=== PATIENT | female | born 1960 | race African-American/Black ===

== ENCOUNTER 2024-07-05 16:18 | Emergency (ER) | payer BC ==
[2024-07-05 16:26] VITALS: BMI 23.6
[2024-07-05] MEDS: SODIUM CHLORIDE 0.9% 500 ML INFUS.BAG IV ONE (17:21)
[2024-07-05] MEDS ORDERED: MECLIZINE HCL 25 MG TABLET (FP) ONE (17:22)
[2024-07-05 17:27] LABS: ABSOLUTE IMMATURE GRANULOCYTES 0.02 x10^3/uL (0.0-0.031); BASOPHILS # 0.03 x10^3/uL (0.01-0.08); EOSINOPHILS # 0.48 x10^3/uL (0.04-0.36); HEMATOCRIT 38.4 % (34.1-44.9); HEMOGLOBIN 12.9 g/dL (11.2-15.7); MCHC 33.6 g/dl (32.2-35.5); MEAN CELL VOLUME 83.8 fl (79.4-94.8); MEAN PLT VOLUME 9.9 fl (9.4-12.3); MONOCYTE # 0.38 x10^3/uL (0.24-0.86); MONOCYTE % 9.5 % (4.7-12.5); PLATELET COUNT # 273 x10^3/uL (182-369); RDW 13.4 % (12.4-16.4)
[2024-07-05] MEDS: MECLIZINE HCL 25 MG TABLET (FP) PO ONE (17:29)
[2024-07-05 17:55] LABS: POTASSIUM 4.2 mmol/L (3.5-5.1)
[2024-07-05 17:58] LABS: ALBUMIN 3.5 g/dl (3.4-5.0); BLOOD UREA NITROGEN 8.9 mg/dL (7-18)
[2024-07-05 18:01] LABS: CREATININE 0.9 mg/dL (0.55-1.3); PHOSPHOROUS 2.3 mg/dL (2.5-4.9)
[2024-07-05 18:02] LABS: BILIRUBIN,TOTAL 0.4 mg/dL (0.2-1)
[2024-07-05 18:03] LABS: TOT PROT 7.9 g/dl (6.4-8.2)
[2024-07-05 20:48] VITALS: BP 133/76; PULSE 60; RESP 17; TEMP 97.8
== END 2024-07-05 20:00 | disposition home or self-care (01) ==
LOC: JER 16:18
DX: R42 Dizziness and giddiness (principal); R11.2 Nausea with vomiting, unspecified; R00.1 Bradycardia, unspecified
CPT/HCPCS: 0241U-QW; 36415; 80053; 83735; 84100; 85025; 93005; 93010; 99284-25